=== PATIENT | male | born 1940 | race Caucasian/White ===

== ENCOUNTER 2017-04-02 07:48 | Inpatient (IN) | payer MEDICARE ==
[~2017-04-02] VITALS: Ht 175.3 cm; Wt 89.0 kg
[~2017-04-02 07:48] MED LIST: BENI20TA25 PO; CORE25TA PO; COUM2TAB PO; COUM4TAB7 PO; ROSU10 PO; VITA400C58 PO
[2017-04-02 07:50] VITALS: BP 126/98; PULSE 69; RESP 15; TEMP 98.2; O2SAT 97
[2017-04-02] MEDS ORDERED: SODIUM CHLOR 0.9% 1000 ML INJ 1,000 ML IV SCH ×2 (08:17→11:30)
[2017-04-02 08:22] VITALS: RESP 18; O2SAT 98
[2017-04-02] MEDS ORDERED: DIATRIZOATE MEGLUM/DIATRIZOATE SOD 9 ML CUP ONE ×2 (08:28→08:30)
[2017-04-02] MEDS ORDERED: ONDANSETRON HCL 4 MG/2 ML VIAL IVP ONE (08:30)
--- NOTE | 2017-04-02 08:33 | PD ---
HPI Chief Complaint: Abdominal Pain Time Seen by Provider: 07:55 Travel History International Travel<30 days: No Contact w/Intl Traveler<30days: No Traveled to known affect area: No History of Present Illness HPI This is a 76 year old gentleman with a history of diverticulitis, thrombocythemia, presents today with complaints of abdominal pain and nausea. The patient states that he was experiencing left lower quadrant abdominal pain consistent with his previous diverticulitis episodes. He states his GI doctor, Dr. Lopez, prescribed ciprofloxacin and wanted him to have a CT scan on Monday which is tomorrow. The patient states over the evening he started experiencing slightly worse abdominal pain. He also states he is nauseous. He states his mouth was really dry and throughout the night he had drink water to keep his tongue from being so dried out. He states that early in the morning he noted some dried blood on the back of his tongue. He denies any melena. He denies any hematemesis. He does take Xarelto. There is no reported fevers, chills. There are no other complaints time my examination. PFSH Past Medical History Hx Anticoagulant Therapy: Yes (xarelto) Arthritis: No Atrial Fibrillation: Yes Blood Disorders: No Heart Rhythm Problems: No Cancer: Yes (BASAL CELL REMOVED FROM NOSE) Cardiovascular Problems: Yes (afib with ablation in 2014) High Cholesterol: Yes Chemotherapy: No Chest Pain: No Congestive Heart Failure: No Diminished Hearing: No Diverticulitis: Yes Endocrine: No Gastrointestinal Disorders: Yes GERD: Yes Genitourinary: Yes Hepatitis: No Hiatal Hernia: No Heparin Induced Thrombocytopen: No Hypertension: Yes Immune Disorder: No Inguinal Hernia: Yes Implanted Vascular Access Dvce: No Kidney Stones: No Musculoskeletal: Yes Neurologic: No Psychiatric: No Respiratory: No Myocardial Infarction: No Radiation Therapy: No Renal Failure: No Sickle Cell Disease: No Ulcer: No Past Surgical History Abdominal Surgery: Yes (GALL BLADDER SX) AICD: No Appendectomy: No Arteriovenous Shunt: No Body Medical Devices: LEFT ANKLE PIN Cardiac Surgery: No Cholecystectomy: Yes Ear Surgery: No Endocrine Surgery: No Eye Surgery: No Genitourinary Surgery: Yes (INGUINAL REPAIR) Insulin Pump: No Joint Replacement: No Neurologic Surgery: Yes (REPAIR OF HERNIATED DISC) Oral Surgery: Yes Pacemaker: No Thoracic Surgery: No Tonsillectomy: Yes Other Surgery: No (REMOVAL OF BASAL CELL CA ON NOSE) Social History 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) Tobacco Use: No Substance Use: No Allergies-Medications (Allergen,Severity, Reaction): Coded Allergies: Sulfa (Sulfonamide Antibiotics) (Unverified Allergy, Severe, HIVES, ) bee venom protein (honey bee) (Unverified Allergy, Mild, SWELLING AT SITE , 02/28/17) Reported Meds & Prescriptions Reported Meds & Active Scripts Active Reported Foltabs (Folic Acid-B12-B6) 0.8-115-10 Mg Tab 1 Tab PO DAILY Xarelto (Rivaroxaban) 20 Mg Tab 20 Mg PO DAILY Benicar (Olmesartan) 20 Mg Tab 20 Mg PO DAILY Crestor (Rosuvastatin Calcium) 10 Mg Tab 10 Mg PO DAILY Coreg (Carvedilol) 25 Mg Tab 25 Mg PO BID Review of Systems Except as stated in HPI: all other systems reviewed are Neg General / Constitutional: No: Fever, Chills HENT: No: Headaches, Lightheadedness, Neck Pain Cardiovascular: No: Chest Pain or Discomfort, Palpitations Respiratory: No: Cough, Shortness of Breath Gastrointestinal: Positive: Nausea, Abdominal Pain (F lower quadrant), Other ( no melena), No: Vomiting, Diarrhea, Hematemesis Genitourinary: No: Frequency, Dysuria Musculoskeletal: No: Weakness, Pain Neurologic: No: Weakness, Headache Physical Exam Narrative GENERAL: Well-developed well-nourished male in no acute rest her distress. SKIN: Focused skin assessment warm/dry. HEAD: Atraumatic. Normocephalic. EYES: No scleral icterus. No injection or drainage. ENT: No nasal bleeding or discharge. Mucous membranes pink and moist. On examination patient's oropharynx, there is no gum or tongue bleeding at the time of my evaluation. NECK: Trachea midline. Supple. CARDIOVASCULAR: Regular rate and rhythm. No murmur appreciated. RESPIRATORY: No accessory muscle use. Clear to auscultation. Breath sounds equal bilaterally. GASTROINTESTINAL: Abdomen soft, nondistended. There is slight redness to palpation in left lower quadrant. No rebound or guarding. MUSCULOSKELETAL: No obvious deformities. No clubbing. No cyanosis. No edema. NEUROLOGICAL: Awake and alert. No obvious cranial nerve deficits. Motor grossly within normal limits. Normal speech. PSYCHIATRIC: Appropriate mood and affect; insight and judgment normal. Data Data Last Documented VS Vital Signs Date Time Temp Pulse Resp B/P (MAP) Pulse Ox O2 Delivery O2 Flow Rate FiO2 04/02/17 12:02 66 18 121/76 (91) 95 Room Air 04/02/17 07:50 98.2 Orders Orders Complete Blood Count With Diff (04/02/17 08:17) Comprehensive Metabolic Panel (04/02/17 08:17) Lipase (04/02/17 08:17) Prothrombin Time / Inr (Pt) (04/02/17 08:17) Act Partial Throm Time (Ptt) (04/02/17 08:17) Urinalysis - C+S If Indicated (04/02/17 08:17) Iv Access Insert/Monitor (04/02/17 08:17) Ecg Monitoring (04/02/17 08:17) Oximetry (04/02/17 08:17) Ondansetron Inj (Zofran Inj) (04/02/17 08:30) Sodium Chlor 0.9% 1000 Ml Inj (Ns 1000 M (04/02/17 08:17) Diatrizoate Liq ( Gastronatalie Liq) (04/02/17 08:28) Diatrizoate Liq (Md Alan Liq) (04/02/17 08:30) Oral Contrast - Adult (04/02/17 09:49) Ct Abd/Pel W/O Iv Contrast (04/02/17 09:46) Sodium Chlor 0.9% 1000 Ml Inj (Ns 1000 M (04/02/17 11:30) Bladder Scan PRN (04/02/17 11:28) Ciprofloxacin (Cipro) (04/02/17 12:15) Consult Nephrology (04/02/17 ) Admit Order (Ed Use Only) (04/02/17 12:14) Labs Laboratory Tests Test 04/02/17 08:37 White Blood Count 3.8 TH/MM3 Red Blood Count 4.79 MIL/MM3 Hemoglobin 14.3 GM/DL Hematocrit 41.5 % Mean Corpuscular Volume 86.8 FL Mean Corpuscular Hemoglobin 29.8 PG Mean Corpuscular Hemoglobin Concent 34.4 % Red Cell Distribution Width 13.1 % Platelet Count 106 TH/MM3 Mean Platelet Volume 7.4 FL Neutrophils (%) (Auto) 29.1 % Lymphocytes (%) (Auto) 52.1 % Monocytes (%) (Auto) 18.3 % Eosinophils (%) (Auto) 0.4 % Basophils (%) (Auto) 0.1 % Neutrophils # (Auto) 1.1 TH/MM3 Lymphocytes # (Auto) 2.0 TH/MM3 Monocytes # (Auto) 0.7 TH/MM3 Eosinophils # (Auto) 0.0 TH/MM3 Basophils # (Auto) 0.0 TH/MM3 CBC Comment AUTO DIFF Differential Total Cells Counted 100 Neutrophils % (Manual) 36 % Band Neutrophils % 8 % Lymphocytes % 42 % Monocytes % 14 % Neutrophils # (Manual) 1.7 TH/MM3 Differential Comment FINAL DIFF MANUAL Atypical Lymphocytes % Platelet Estimate LOW Platelet Morphology Comment NORMAL Red Cell Morphology Comment NORMAL Prothrombin Time 14.4 SEC Prothromb Time International Ratio 1.3 RATIO Activated Partial Thromboplast Time 36.7 SEC Urine Color YELLOW Urine Turbidity CLEAR Urine pH 5.0 Urine Specific [place] 1.008 Urine Protein NEG mg/dL Urine Glucose (UA) NEG mg/dL Urine Ketones NEG mg/dL Urine Occult Blood NEG Urine Nitrite NEG Urine Bilirubin NEG Urine Urobilinogen LESS THAN 2.0 MG/DL Urine Leukocyte Esterase NEG Urine RBC 1 /hpf Urine WBC 2 /hpf Microscopic Urinalysis Comment CULT NOT INDICATED Blood Urea Nitrogen 38 MG/DL Creatinine 2.97 MG/DL Random Glucose 110 MG/DL Total Protein 7.5 GM/DL Albumin 3.7 GM/DL Calcium Level 9.4 MG/DL Alkaline Phosphatase 92 U/L Aspartate Amino Transf (AST/SGOT) 45 U/L Alanine Aminotransferase (ALT/SGPT) 50 U/L Total Bilirubin 1.5 MG/DL Sodium Level 136 MEQ/L Potassium Level 4.4 MEQ/L Chloride Level 106 MEQ/L Carbon Dioxide Level 21.3 MEQ/L Anion Gap 9 MEQ/L Estimat Glomerular Filtration Rate 21 ML/MIN Lipase 139 U/L MDM Medical Decision Making Medical Screen Exam Complete: Yes Emergency Medical Condition: Yes Differential Diagnosis Diverticulitis versus diverticular abscess versus thrombocytopenia Narrative Course This is a 76 year-old gentleman who presents here with complaints of nausea and abdominal pain. Patient also reported blood in his mouth this morning. The patient is currently taking Xarelto. Patient has a history of diverticulitis and is being seen by Dr. Lopez, leg assembler. Patient's creatinine is 2.97. The last creatinine we have on record is normal at 1.0. Given this, we will hydrate him. His BUN is also elevated which indicates somewhat of a prerenal azotemia. Patient's CT scan shows evidence of diverticulosis without abscess. His bladder was distended. We're currently obtaining a bladder scan will do a post void residual. This appears to be residual urine in his bladder , we'll place a catheter. [facility] Case was discussed with Dr. Melchor. Post void residual showed 311 mL of urine that was retained after void. A [place] catheter has been placed. There's been a consult placed for Dr. Blackmon, rn private duty on-call. Diagnosis Primary Impression: Acute kidney injury Additional Impressions: Diverticulitis HX: anticoagulation oropharynx bleeding resolved. History of thrombocytopenia History of atrial fibrillation Admitting Information Admitting Physician Requests: Admit Hubert Mclaughlin MD Apr 02, 2017 08:33
[2017-04-02 09:00] LABS: AUTOMATED NEUTROPHIL # 1.1 TH/MM3 (1.8-7.7); BASOPHIL % 0.1 % (0.0-2.0); EOSINOPHIL % 0.4 % (0.0-4.0); HEMATOCRIT 41.5 % (39.0-51.0); LYMPH % 52.1 % (9.0-44.0); MEAN CELL VOLUME 86.8 FL (80.0-100.0); MEAN CORPUSCULAR HEMOGLOBIN 29.8 PG (27.0-34.0); MEAN CORPUSCULAR HGB CONC 34.4 % (32.0-36.0); MONO % 18.3 % (0.0-8.0); NEUT % 29.1 % (16.0-70.0); PLATELET COUNT 106 TH/MM3 (150-450); RED BLOOD COUNT 4.79 MIL/MM3 (4.50-5.90); RED CELL DISTRIBUTION WIDTH 13.1 % (11.6-17.2); WHITE BLOOD COUNT 3.8 TH/MM3 (4.0-11.0)
[2017-04-02 09:04] LABS: HEMO FLAGS AUTO DIFF
[2017-04-02 09:06] LABS: ANION GAP 9 MEQ/L (5-15); AST (GOT) 45 U/L (15-37); BICARBONATE 21.3 MEQ/L (21.0-32.0); BLOOD UREA NITROGEN 38 MG/DL (7-18); CHLORIDE 106 MEQ/L (98-107); GLOMERULAR FILTRATION RATE 21 ML/MIN (>89); POTASSIUM 4.4 MEQ/L (3.5-5.1); SODIUM (NA) 136 MEQ/L (136-145)
[2017-04-02 09:07] LABS: ALT (GPT) 50 U/L (12-78)
[2017-04-02 09:09] LABS: APTT (PATIENT) 36.7 SEC (24.3-30.1); INTERNATIONAL NORMALIZED RATIO 1.3 RATIO; PROTHROMBIN TIME - PATIENT 14.4 SEC (9.8-11.6)
[2017-04-02 09:10] LABS: ALKALINE PHOSPHATASE 92 U/L (45-117); TOTAL BILIRUBIN ADULT 1.5 MG/DL (0.2-1.0)
[2017-04-02 09:25] LABS: BLOOD, URINE NEG (NEG); COMMENT (UR) CULT NOT INDICATED; CULTURE IF INDICATED CULT NOT INDICATED; GLUCOSE,URINE NEG (NEG); KETONE, URINE NEG (NEG); NITRITE,URINE NEG (NEG); URINE COLOR YELLOW (YELLW/STRAW)
[2017-04-02 09:40] LABS: BANDS 8 % (0-6); NEUTROPHIL # MANUAL DIFF 1.7 TH/MM3 (1.8-7.7); PLATELET ESTIMATE SMEAR LOW (NORMAL); PLATELET MORPHOLOGY NORMAL (NORMAL); POLYS (SEG NEUTROPHILS) 36 % (16-70); SCAN/DIFF FINAL DIFF MANUAL; WBC DIFF SAMPLE 100
--- NOTE | 2017-04-02 10:47 | RADRPT ---
EXAM DATE/TIME: 04/02/2017 10:19 [facility] COMPARISON: No previous studies available for comparison. INDICATIONS : Abdominal pain with nausea. ORAL CONTRAST: Prescribed oral contrast ingested. RADIATION DOSE: 14.13 CTDIvol (mGy) MEDICAL HISTORY : Diverticulitis. Cardiovascular disease SURGICAL HISTORY : Cholecystectomy. Hernia repair. ENCOUNTER: Initial ACUITY: 2 days PAIN SCALE: 7/10 LOCATION: Left lower quadrant abdominal. TECHNIQUE: Volumetric scanning of the abdomen and pelvis was performed. Using automated exposure control and ad justment of the mA and/or kV according to patient size, radiation dose was kept as low as reasonably achievable to obtain optimal diagnostic quality images. DICOM format image data is available electro nically for review and comparison. FINDINGS: LOWER LUNGS: The visualized lower lungs are clear. LIVER: Homogeneous density without lesion. There is no dilation of the biliary tree. The patient is status post cholecystectomy. SPLEEN: Normal size without lesion. PANCREAS: Within normal limits. KIDNEYS: Normal in size and shape. There is no mass, stone, or hydronephrosis. ADRENAL GLANDS: Within normal limits. VASCULAR: There is no aortic aneurysm. There scattered atherosclerotic calcifications present. BOWEL/MESENTERY: There is a mild hiatal hernia present. There are colonic diverticula without significant inflammatory change. ABDOMINAL WALL: Within normal limits. RETROPERITONEUM: There is no lymphadenopathy. BLADDER: The bladder is distended. REPRODUCTIVE: Within normal limits. INGUINAL: There is no lymphadenopathy or hernia. MUSCULOSKELETAL: There is degenerative change in lumbar spine. CONCLUSION: 1. Diverticula throughout the colon without definite inflammatory change. 2. Distended urinary bladder. Some degree of outlet structure can be considered. 3. Hiatal hernia. Alexys Sanches MD on April 02, 2017 at 10:41 Board Certified Radiologist. This report was verified electronically.
[2017-04-02] MEDS ORDERED: CORE25TA PO (10:53)
[2017-04-02] MEDS ORDERED: ROSU10 PO (10:53)
[2017-04-02] MEDS ORDERED: BENI20TA5 PO (10:53)
[2017-04-02] MEDS ORDERED: XARE20TA PO (10:53)
[2017-04-02] MEDS ORDERED: FOLI-31 PO (10:53)
[2017-04-02 12:02] VITALS: BP 121/76; PULSE 66; RESP 18; O2SAT 95
[2017-04-02 12:15] VITALS: BP 121/77; PULSE 65; RESP 18; O2SAT 98
[2017-04-02] MEDS ORDERED: CIPROFLOXACIN 500 MG TAB PO ONE (12:15)
[2017-04-02] MEDS: SODIUM CHLOR 0.9% 1000 ML INJ 1,000 ML IV SCH (12:27)
[2017-04-02] MEDS ORDERED: BISACODYL 10 MG SUPP RECTAL PRN (12:30)
[2017-04-02] MEDS ORDERED: ACETAMINOPHEN 325 MG TAB PO PRN (12:30)
[2017-04-02] MEDS ORDERED: SODIUM CHLORIDE 0.9% FLUSH 10 ML FLUSH IV FLUSH PRN (12:30)
[2017-04-02] MEDS ORDERED: MAGNESIUM HYDROXIDE SUSP 30 ML CUP PO PRN (12:30)
[2017-04-02] MEDS ORDERED: NALOXONE HCL 0.4 MG/ML AMP IV PUSH PRN (12:30)
[2017-04-02] MEDS ORDERED: ONDANSETRON HCL 4 MG/2 ML VIAL IVP PRN (12:30)
[2017-04-02] MEDS ORDERED: LACTULOSE SYRUP 20 GM/30 ML CUP PO PRN (12:30)
[2017-04-02] MEDS ORDERED: MORPHINE SULFATE 4 MG/ML INJ IV PUSH PRN (12:30)
[2017-04-02] MEDS ORDERED: SENNOSIDES 8.6 MG TAB PO PRN (12:30)
[2017-04-02] MEDS: LEVOFLOXACIN 250 MG PREMIX INJ 50 ML IV SCH (13:57)
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
[2017-04-02 16:00] VITALS: BP 151/69; PULSE 91; RESP 18; TEMP 96.7; O2SAT 97
--- NOTE | 2017-04-02 16:07 | PD.CONS ---
[facility] Service Nephrology Consult Requested By Reason for Consult Acute kidney injury Primary Care Physician Ryder Alcala M.D. History of Present Illness Mr. Gaston is a 76 year old male who developed abdominal pain last week. He was prescribed Cipro and was scheduled to have CT of the abdomen on Monday. He took 2 doses of of Cipro, however the abdominal pain progressively prompting him to come to the ER. In the ER he is noted to have a creatinine of 2.97. In 2012, his creatinine was 0.94. He had CT scan of the abdomen today which revealed diverticula, but with definitive signs of inflammation. Incidentally it revealed distended bladder. Bladder scan detected about 311 ml of urine. Randolph was placed. He has been placed on IVF and Levaquin. Review of Systems Constitutional: COMPLAINS OF: Fatigue, DENIES: Fever Eyes: DENIES: Blurred vision, Diplopia Cardiovascular: DENIES: Chest pain, Palpitations Gastrointestinal: COMPLAINS OF: Abdominal pain, Diarrhea, Nausea, DENIES: Black stools, Bloody stools Musculoskeletal: DENIES: Joint pain Neurologic: DENIES: Abnormal gait, Headache, Localized weakness Past Family Social History Allergies: Coded Allergies: Sulfa (Sulfonamide Antibiotics) (Unverified Allergy, Severe, HIVES, ) bee venom protein (honey bee) (Unverified Allergy, Mild, SWELLING AT SITE , 02/28/17) Past Medical History Diverticulosis Thrombocytopenia, follows up with Dr. Blackmon Skin cancer Atrial fibrillation on Xarelto Previous ablation GERD BPH Hyperlipidemia Hypertension Past Surgical History TURP [address] Andre Back surgery Laparoscopic cholecystectomy Left inguinal hernia repair Colonoscopy Reported Medications Reported Meds & Active Scripts Active Reported Foltabs (Folic Acid-B12-B6) 0.8-115-10 Mg Tab 1 Tab PO DAILY Xarelto (Rivaroxaban) 20 Mg Tab 20 Mg PO DAILY Benicar (Olmesartan) 20 Mg Tab 20 Mg PO DAILY Crestor (Rosuvastatin Calcium) 10 Mg Tab 10 Mg PO DAILY Coreg (Carvedilol) 25 Mg Tab 25 Mg PO BID Active Ordered Medications Current Medications Medications (Trade) Dose Ordered Sig/Zita Route Start Time Stop Time Status Last Admin Sodium Chloride 1,000 ml @ 125 mls/hr Q8H IV 04/02/17 08:17 04/02/17 16:16 04/02/17 08:56 Sodium Chloride 1,000 ml @ 100 mls/hr Q10H IV 04/02/17 12:27 (NS Flush) 2 ml UNSCH PRN IV FLUSH 04/02/17 12:30 (NS Flush) 2 ml BID IV FLUSH 04/02/17 21:00 (Tylenol) 650 mg Q4H PRN PO 04/02/17 12:30 (Zofran Inj) 4 mg Q6H PRN IVP 04/02/17 12:30 (Morphine Inj) 2 mg Q3H PRN IV PUSH 04/02/17 12:30 (Narcan Inj) 0.4 mg UNSCH PRN IV PUSH 04/02/17 12:30 (Jojo-Colace) 1 tab BID PO 04/02/17 21:00 (Milk Of Magnesia Liq) 30 ml Q12H PRN PO 04/02/17 12:30 (Senokot) 17.2 mg Q12H PRN PO 04/02/17 12:30 (Dulcolax Supp) 10 mg DAILY PRN RECTAL 04/02/17 12:30 (Lactulose Liq) 30 ml DAILY PRN PO 04/02/17 12:30 (Coreg) 25 mg BID PO 04/02/17 21:00 (Xarelto) 20 mg DAILY PO 04/03/17 09:00 Patient Own Medication PT OWN MED: FOLIC ACID-BQ2-... DAILY PO 04/03/17 09:00 Future Hold (Lipitor) 20 mg DAILY PO 04/03/17 09:00 Levofloxacin/ Dextrose 50 ml @ 50 mls/hr Q24H IV 04/02/17 14:00 04/02/17 13:57 (Flomax) 0.4 mg DAILY PO 04/02/17 16:00 Family History Father had CHF Mother of complications of CVA Social History no tobacco, no ETOH Physical Exam Vital Signs Vital Signs Date Time Temp Pulse Resp B/P (MAP) Pulse Ox O2 Delivery O2 Flow Rate FiO2 04/02/17 12:15 65 18 121/77 (92) 98 Room Air 04/02/17 12:02 66 18 121/76 (91) 95 Room Air 04/02/17 08:22 18 98 Room Air 04/02/17 08:00 18 04/02/17 07:50 98.2 69 15 126/98 (107) 97 Physical Exam GENERAL: alert, oriented, comfortable. SKIN: Warm and dry. HEAD: Normocephalic. EYES: No scleral icterus. No injection or drainage. NECK: Supple, trachea midline. No JVD or lymphadenopathy. CARDIOVASCULAR: Regular rate and rhythm without murmurs, gallops, or rubs. RESPIRATORY: Breath sounds equal bilaterally. No accessory muscle use. GASTROINTESTINAL: Abdomen soft, non-tender, nondistended. MUSCULOSKELETAL: No cyanosis, or edema. BACK: Nontender without obvious deformity. No CVA tenderness. Laboratory Laboratory Tests Test 04/02/17 08:37 White Blood Count 3.8 Red Blood Count 4.79 Hemoglobin 14.3 Hematocrit 41.5 Mean Corpuscular Volume 86.8 Mean Corpuscular Hemoglobin 29.8 Mean Corpuscular Hemoglobin Concent 34.4 Red Cell Distribution Width 13.1 Platelet Count 106 Mean Platelet Volume 7.4 Neutrophils (%) (Auto) 29.1 Lymphocytes (%) (Auto) 52.1 Monocytes (%) (Auto) 18.3 Eosinophils (%) (Auto) 0.4 Basophils (%) (Auto) 0.1 Neutrophils # (Auto) 1.1 Lymphocytes # (Auto) 2.0 Monocytes # (Auto) 0.7 Eosinophils # (Auto) 0.0 Basophils # (Auto) 0.0 CBC Comment AUTO DIFF Differential Total Cells Counted 100 Neutrophils % (Manual) 36 Band Neutrophils % 8 Lymphocytes % 42 Monocytes % 14 Neutrophils # (Manual) 1.7 Differential Comment FINAL DIFF MANUAL Atypical Lymphocytes Platelet Estimate LOW Platelet Morphology Comment NORMAL Red Cell Morphology Comment NORMAL Prothrombin Time 14.4 Prothromb Time International Ratio 1.3 Activated Partial Thromboplast Time 36.7 Urine Color YELLOW Urine Turbidity CLEAR Urine pH 5.0 Urine Specific [place] 1.008 Urine Protein NEG Urine Glucose (UA) NEG Urine Ketones NEG Urine Occult Blood NEG Urine Nitrite NEG Urine Bilirubin NEG Urine Urobilinogen LESS THAN 2.0 Urine Leukocyte Esterase NEG Urine RBC 1 Urine WBC 2 Microscopic Urinalysis Comment CULT NOT INDICATED Blood Urea Nitrogen 38 Creatinine 2.97 Random Glucose 110 Total Protein 7.5 Albumin 3.7 Calcium Level 9.4 Alkaline Phosphatase 92 Aspartate Amino Transf (AST/SGOT) 45 Alanine Aminotransferase (ALT/SGPT) 50 Total Bilirubin 1.5 Sodium Level 136 Potassium Level 4.4 Chloride Level 106 Carbon Dioxide Level 21.3 Anion Gap 9 Estimat Glomerular Filtration Rate 21 Lipase 139 Result Diagram: 04/02/1737 04/02/1737 Assessment and Plan Problem List: (1) Acute kidney injury ICD Codes: N17.9 - Acute kidney failure, unspecified Status: Acute Plan: Could be due to pre-renal azotemia due to intravascular volume depletion. Urinary retention may have played a role, he has made about 800 ml of urine since insertion of Randolph catheter. However bladder scan revealed only about 300 ml of urine. Agree with IVF. Reduce the rate. Obtain urine electrolytes. Avoid nephrotoxic agents. Monitor urine output and renal function. (2) Essential (primary) hypertension ICD Codes: I10 - Essential (primary) hypertension Status: Chronic Plan: Suspend Benicar for the time being, monitor. (3) History of atrial fibrillation ICD Codes: Z86.79 - Personal history of other diseases of the circulatory system Status: Chronic Plan: Xarelto may need to be suspended due to MICHAELLE. (4) History of thrombocytopenia ICD Codes: Z86.2 - Personal history of diseases of the blood and blood-forming organs and certain disorders involving the immune mechanism Status: Acute Plan: chronic, appears stable. Monitor. Assessment and Plan Thanks for the consult. Дмитрий Price MD Apr 02, 2017 16:07
[2017-04-02] MEDS: TAMSULOSIN HCL 0.4 MG CAP PO SCH (17:55)
[2017-04-02] MEDS ORDERED: RIVAROXABAN 20 MG TAB PO SCH (18:00)
[2017-04-02 20:00] VITALS: BP 129/62; PULSE 68; RESP 20; TEMP 98.3; O2SAT 96
[2017-04-02] MEDS: DOCUSATE SODIUM 50 MG/SENNA 8.6 MG TAB PO SCH (21:00)
[2017-04-02] MEDS: SODIUM CHLORIDE 0.9% FLUSH 10 ML FLUSH IV FLUSH SCH (21:00)
[2017-04-02] MEDS: CARVEDILOL 12.5 MG TAB PO SCH (21:06)
[2017-04-03] VITALS: BP 106/55; PULSE 74; RESP 20; TEMP 98.9; O2SAT 95
[2017-04-03] MEDS: SODIUM CHLOR 0.9% 1000 ML INJ 1,000 ML IV SCH ×3 (00:01→20:58)
[2017-04-03 07:21] LABS: HEMATOCRIT 36.1 % (39.0-51.0); MEAN CELL VOLUME 87.1 FL (80.0-100.0); MEAN CORPUSCULAR HEMOGLOBIN 29.9 PG (27.0-34.0); MEAN CORPUSCULAR HGB CONC 34.3 % (32.0-36.0); PLATELET COUNT 94 TH/MM3 (150-450); RED BLOOD COUNT 4.14 MIL/MM3 (4.50-5.90); WHITE BLOOD COUNT 3.4 TH/MM3 (4.0-11.0)
[2017-04-03 07:35] LABS: REVIEW FLAG FINAL
[2017-04-03] MEDS: SODIUM CHLORIDE 0.9% FLUSH 10 ML FLUSH IV FLUSH SCH ×2 (07:38→20:57)
[2017-04-03] MEDS: CARVEDILOL 12.5 MG TAB PO SCH ×2 (07:38→20:57)
[2017-04-03] MEDS: ATORVASTATIN 20 MG TAB PO SCH (07:38)
[2017-04-03] MEDS: TAMSULOSIN HCL 0.4 MG CAP PO SCH (07:38)
[2017-04-03] MEDS: DOCUSATE SODIUM 50 MG/SENNA 8.6 MG TAB PO SCH ×2 (07:39→20:57)
[2017-04-03 07:55] LABS: BICARBONATE 20.3 MEQ/L (21.0-32.0); POTASSIUM 4.3 MEQ/L (3.5-5.1)
[2017-04-03 08:00] VITALS: BP 120/59; PULSE 75; RESP 18; TEMP 96.9; O2SAT 95
[2017-04-03] MEDS ORDERED: FOLIC ACID PO SCH (09:00)
[2017-04-03] MEDS ORDERED: CYANOCOBALAMIN PO SCH (09:00)
[2017-04-03] MEDS ORDERED: PYRIDOXINE PO SCH (09:00)
--- NOTE | 2017-04-03 09:35 | HHI.PR ---
Subjective Subjective Remarks resting in bed in pt. feeling better, no abd. pain, tolerating clear liquids ketaing intact, clear urine, hoping for dc soon, today? Review of Systems Constitutional Constitutional Remarks 10 point ROS done. GI/Abdomen GI/Abdomen Remarks tolerating clear liquids Psychiatric Psychiatric: Normal Mood Vitals/Results Intake & Output 04/03/17 04/03/17 04/04/17 15:00 23:00 07:00 Intake Total 120 ml Balance 120 ml Intake Oral 120 ml Vital Signs Vital Signs Date Time Temp Pulse Resp B/P (MAP) Pulse Ox O2 Delivery O2 Flow Rate FiO2 04/03/17 08:00 96.9 75 18 120/59 (79) 95 04/03/17 00:00 98.9 74 20 106/55 (72) 95 04/02/17 20:00 98.3 68 20 129/62 (84) 96 04/02/17 16:00 96.7 91 18 151/69 (96) 97 04/02/17 12:15 65 18 121/77 (92) 98 Room Air 04/02/17 12:02 66 18 121/76 (91) 95 Room Air CBC/BMP: 04/03/17 0620 04/03/17 0620 Lab Results Laboratory Tests Test 04/03/17 06:20 White Blood Count 3.4 TH/MM3 Red Blood Count 4.14 MIL/MM3 Hemoglobin 12.4 GM/DL Hematocrit 36.1 % Mean Corpuscular Volume 87.1 FL Mean Corpuscular Hemoglobin 29.9 PG Mean Corpuscular Hemoglobin Concent 34.3 % Red Cell Distribution Width 13.0 % Platelet Count 94 TH/MM3 Mean Platelet Volume 7.7 FL Blood Urea Nitrogen 35 MG/DL Creatinine 2.66 MG/DL Random Glucose 89 MG/DL Calcium Level 8.1 MG/DL Sodium Level 138 MEQ/L Potassium Level 4.3 MEQ/L Chloride Level 108 MEQ/L Carbon Dioxide Level 20.3 MEQ/L Anion Gap 10 MEQ/L Estimat Glomerular Filtration Rate 23 ML/MIN Current Medications Administered Medications Medications (Trade) Dose Ordered Sig/Zita Route PRN Reason Start Time Stop Time Status Last Admin Dose Admin Carvedilol (Coreg) 25 mg BID PO 04/02/17 21:00 04/03/17 07:38 Rivaroxaban (Xarelto) 20 mg DAILY@1800 PO 04/02/17 18:00 04/02/17 17:55 Atorvastatin Calcium (Lipitor) 20 mg DAILY PO 04/03/17 09:00 04/03/17 07:38 Levofloxacin/ Dextrose 50 ml @ 50 mls/hr Q24H IV 04/02/17 14:00 04/02/17 13:57 Tamsulosin HCl (Flomax) 0.4 mg DAILY PO 04/02/17 16:00 04/03/17 07:38 Physical Exam General General Appearance: Comfortable Eyes Eye Exam: Pupils Equal, Pupils Reactive Ears & Nose Ears & Nose Exam: Nasal Mucosa [place] Throat Throat Exam: Oral Mucosa [place] & Moist Neck Neck Exam: Neck Supple Pulmonary Resp Exam: Clear Bilaterally Cardiology CV Exam: Regular Gastrointestinal/Abdomen GI Exam: Soft, Non-Tender, Bowel Sounds Present GI Remarks clear liquids , No nausea /vomiting Musculoskeletal MS Exam: Joints Intact, Good Strength Integumentary Skin Exam: Warm, Dry, Intact Extremeties Extremities Exam: No Edema Neurologic Neuro Exam: Alert, Awake, Oriented, Speech Clear, Moving All Extremities Assessment/Plan Assessment/Plan Vital signs reviewed trends are normal, afebrile Labs reviewed, leukopenia 3.4, anemia which appears to be stable and could be related to his renal disease Acute diverticulitis, hydration IVF tolerating clear liquid diet, active BS, no pain Levaquin 250 mg IV daily Acute kidney injury, possibly pre-renal azotemia due to intravascular volume depletion Appreciate nephrology input, recommendations include , IVF. Reduce the rate. Monitor I&O, avoid nephrotoxic agents Hold Benicar, Xarelto could be causing acute kidney injury, Continue [place] catheter for now, Flomax initiated labs reviewed, only mild changes noted. A. fib on Xarelto Prior ablation, Xarelto, DVT prophylaxis Hypertension, medical management Stable trends Thrombocytopenia Platelets 106, probable chronic Discussed with patient Discussed with Dr. Machcua, seen on his behalf DC planning when medically stable to follow as OP Adela Romero Apr 03, 2017 09:35
[2017-04-03 12:00] VITALS: BP 103/58; PULSE 63; RESP 19; TEMP 98.3; O2SAT 96
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
[2017-04-03] MEDS: LEVOFLOXACIN 250 MG PREMIX INJ 50 ML IV SCH (12:30)
[2017-04-03 16:00] VITALS: BP 104/55; PULSE 62; RESP 18; TEMP 97.5; O2SAT 99
[2017-04-03 20:00] VITALS: BP 137/73; PULSE 67; RESP 18; TEMP 97.7; O2SAT 95
[2017-04-04] VITALS: BP 114/55; PULSE 71; RESP 18; TEMP 98.6; O2SAT 95
[2017-04-04 07:50] LABS: AUTOMATED NEUTROPHIL # 0.8 TH/MM3 (1.8-7.7); BASOPHIL % 0.2 % (0.0-2.0); EOSINOPHIL % 0.9 % (0.0-4.0); HEMATOCRIT 37.4 % (39.0-51.0); LYMPH % 55.5 % (9.0-44.0); LYMPHOCYTE # 1.7 TH/MM3 (1.0-4.8); MEAN CELL VOLUME 87.1 FL (80.0-100.0); MEAN CORPUSCULAR HEMOGLOBIN 29.5 PG (27.0-34.0); MEAN CORPUSCULAR HGB CONC 33.9 % (32.0-36.0); MONO % 19.2 % (0.0-8.0); NEUT % 24.2 % (16.0-70.0); PLATELET COUNT 108 TH/MM3 (150-450); RED BLOOD COUNT 4.29 MIL/MM3 (4.50-5.90); RED CELL DISTRIBUTION WIDTH 12.7 % (11.6-17.2); WHITE BLOOD COUNT 3.1 TH/MM3 (4.0-11.0)
[2017-04-04 07:54] LABS: HEMO FLAGS AUTO DIFF
[2017-04-04 08:00] VITALS: BP 134/62; PULSE 65; RESP 16; TEMP 96.5; O2SAT 96
[2017-04-04] MEDS: SODIUM CHLORIDE 0.9% FLUSH 10 ML FLUSH IV FLUSH SCH (08:22)
[2017-04-04 08:23] LABS: BICARBONATE 20.1 MEQ/L (21.0-32.0); POTASSIUM 3.9 MEQ/L (3.5-5.1)
[2017-04-04] MEDS: TAMSULOSIN HCL 0.4 MG CAP PO SCH (08:23)
[2017-04-04] MEDS: CARVEDILOL 12.5 MG TAB PO SCH (08:23)
[2017-04-04] MEDS: ATORVASTATIN 20 MG TAB PO SCH (08:23)
[2017-04-04] MEDS: DOCUSATE SODIUM 50 MG/SENNA 8.6 MG TAB PO SCH (08:25)
[2017-04-04] MEDS ORDERED: APIXABAN 2.5 MG TABLET PO SCH (09:00)
[2017-04-04 09:01] LABS: BANDS 4 % (0-6); BASOPHILS 1 % (0-2); NEUTROPHIL # MANUAL DIFF 0.7 TH/MM3 (1.8-7.7); OVALOCYTES 1+ (NORMAL); PLATELET ESTIMATE SMEAR LOW (NORMAL); PLATELET MORPHOLOGY NORMAL (NORMAL); POLYS (SEG NEUTROPHILS) 18 % (16-70); SCAN/DIFF FINAL DIFF MANUAL; WBC DIFF SAMPLE 100
--- NOTE | 2017-04-04 09:57 | HHI.PR ---
Subjective Subjective Remarks Up in chair Awake alert feeling better Randolph catheter DC'd yesterday Eating regular food without nausea or vomiting Bowel sounds are active Review of Systems Constitutional Constitutional Remarks 10 point ROS done. GI/Abdomen GI/Abdomen Remarks Transition to heart healthy diet, no nausea and vomiting Psychiatric Psychiatric: Normal Mood Vitals/Results Vital Signs Vital Signs Date Time Temp Pulse Resp B/P (MAP) Pulse Ox O2 Delivery O2 Flow Rate FiO2 04/04/17 08:00 96.5 65 16 134/62 (86) 96 04/04/17 00:00 98.6 71 18 114/55 (74) 95 04/03/17 20:00 97.7 67 18 137/73 (94) 95 04/03/17 16:00 97.5 62 18 104/55 (71) 99 04/03/17 12:00 98.3 63 19 103/58 (73) 96 CBC/BMP: 04/04/17 0557 04/04/17 0557 Lab Results Laboratory Tests Test 04/04/17 05:57 White Blood Count 3.1 TH/MM3 Red Blood Count 4.29 MIL/MM3 Hemoglobin 12.6 GM/DL Hematocrit 37.4 % Mean Corpuscular Volume 87.1 FL Mean Corpuscular Hemoglobin 29.5 PG Mean Corpuscular Hemoglobin Concent 33.9 % Red Cell Distribution Width 12.7 % Platelet Count 108 TH/MM3 Mean Platelet Volume 7.5 FL Neutrophils (%) (Auto) 24.2 % Lymphocytes (%) (Auto) 55.5 % Monocytes (%) (Auto) 19.2 % Eosinophils (%) (Auto) 0.9 % Basophils (%) (Auto) 0.2 % Neutrophils # (Auto) 0.8 TH/MM3 Lymphocytes # (Auto) 1.7 TH/MM3 Monocytes # (Auto) 0.6 TH/MM3 Eosinophils # (Auto) 0.0 TH/MM3 Basophils # (Auto) 0.0 TH/MM3 CBC Comment AUTO DIFF Differential Total Cells Counted 100 Neutrophils % (Manual) 18 % Band Neutrophils % 4 % Lymphocytes % 57 % Monocytes % 20 % Basophils % 1 % Neutrophils # (Manual) 0.7 TH/MM3 Differential Comment FINAL DIFF MANUAL Platelet Estimate LOW Platelet Morphology Comment NORMAL Ovalocytes 1+ Blood Urea Nitrogen 33 MG/DL Creatinine 2.48 MG/DL Random Glucose 85 MG/DL Calcium Level 8.3 MG/DL Sodium Level 139 MEQ/L Potassium Level 3.9 MEQ/L Chloride Level 109 MEQ/L Carbon Dioxide Level 20.1 MEQ/L Anion Gap 10 MEQ/L Estimat Glomerular Filtration Rate 25 ML/MIN Current Medications Administered Medications Medications (Trade) Dose Ordered Sig/Zita Route PRN Reason Start Time Stop Time Status Last Admin Dose Admin Sodium Chloride (NS Flush) 2 ml BID IV FLUSH 04/02/17 21:00 04/04/17 08:22 Senna/Docusate Sodium (Jojo-Colace) 1 tab BID PO 04/02/17 21:00 04/03/17 20:57 Carvedilol (Coreg) 25 mg BID PO 04/02/17 21:00 04/04/17 08:23 Atorvastatin Calcium (Lipitor) 20 mg DAILY PO 04/03/17 09:00 04/04/17 08:23 Levofloxacin/ Dextrose 50 ml @ 50 mls/hr Q24H IV 04/02/17 14:00 04/03/17 12:30 Tamsulosin HCl (Flomax) 0.4 mg DAILY PO 04/02/17 16:00 04/04/17 08:23 Apixaban (Eliquis) 2.5 mg BID PO 04/04/17 09:00 04/04/17 08:23 Physical Exam General General Appearance: Comfortable Eyes Eye Exam: Pupils Equal, Pupils Reactive Ears & Nose Ears & Nose Exam: Nasal Mucosa [place] Throat Throat Exam: Oral Mucosa [place] & Moist Neck Neck Exam: Neck Supple Pulmonary Resp Exam: Clear Bilaterally Cardiology CV Exam: Regular Gastrointestinal/Abdomen GI Exam: Soft, Non-Tender, Bowel Sounds Present GI Remarks Eating heart healthy diet , No nausea /vomiting Genitourinary Remarks Voiding without any difficulty, no dysuria, [place] catheter out for approximately 20 hours Musculoskeletal MS Exam: Joints Intact, Good Strength Integumentary Skin Exam: Warm, Dry, Intact Extremeties Extremities Exam: No Edema Neurologic Neuro Exam: Alert, Awake, Oriented, Speech Clear, Moving All Extremities Assessment/Plan Assessment/Plan Vital signs reviewed trends are normal, afebrile Labs reviewed, leukopenia monitored 3.1, BUN/creatinine gradual slow decreased trends Anemia, no obvious bleeding noted Acute diverticulitis, taking by mouth fluids well, encouraged Patient tolerating solid food, heart healthy diet Levaquin 250 mg IV daily Acute kidney injury, possibly pre-renal azotemia due to intravascular volume depletion Appreciate nephrology input, recommendations include , IV fluids off for now encourage by mouth liquids Monitor I&O, avoid nephrotoxic agents Hold Benicar, Xarelto discontinued and started on Eliquis , explained to patient Randolph catheter DC'd on 04-03 , Flomax daily dose, no problems with urinary retention A. fib , now on Eliquis Prior ablation, DVT prophylaxis Hypertension, medical management Stable trends Thrombocytopenia Platelets 106, probable chronic Discussed with patient Discussed with Dr. Machuca, seen on his behalf DC planning when medically stable, possible tomorrow if labs continue to improve , appreciate renal input Adela Romero Apr 04, 2017 09:57
[2017-04-04 12:00] VITALS: BP 109/62; PULSE 65; RESP 16; TEMP 97.5; O2SAT 97
[2017-04-04] MEDS: LEVOFLOXACIN 250 MG PREMIX INJ 50 ML IV SCH (13:25)
[2017-04-04] MEDS: SODIUM CHLOR 0.9% 1000 ML INJ 1,000 ML IV SCH (16:01)
[2017-04-04] MEDS ORDERED: APIX2.5T PO (16:25)
[2017-04-04] MEDS ORDERED: CIPR500T2 PO (16:25)
[2017-04-04] MEDS ORDERED: METR250T15 PO (16:26)
--- NOTE | 2017-04-04 16:39 | HHI.NPPN ---
Subjective Interval History Randolph was removed yesterday. He is voiding without issues. IVF stopped, he is tolerating oral intake. Renal function has improved. Review of Systems General Constitutional: Fatigue Objective Data Data Vital Signs Date Time Temp Pulse Resp B/P (MAP) Pulse Ox O2 Delivery O2 Flow Rate FiO2 04/04/17 12:00 97.5 65 16 109/62 (78) 97 04/04/17 08:00 96.5 65 16 134/62 (86) 96 04/04/17 00:00 98.6 71 18 114/55 (74) 95 04/03/17 20:00 97.7 67 18 137/73 (94) 95 -: 04/04/17 0557 04/04/17 0557 Physical Exam General Appearance: Comfortable Eyes Eye Exam: Pupils Equal, Pupils Reactive Ears & Nose Ears & Nose Exam: Nasal Mucosa [place] Throat Throat Exam: Oral Mucosa [place] & Moist Neck Neck Exam: Neck Supple Pulmonary Resp Exam: Clear Bilaterally Cardiology CV Exam: Regular Gastrointestinal/Abdomen GI Exam: Soft, Non-Tender, Bowel Sounds Present Musculoskeletal MS Exam: Joints Intact, Good Strength Integumentary Skin Exam: Warm, Dry, Intact Extremeties Extremities Exam: No Edema Neurologic Neuro Exam: Alert, Awake, Oriented, Speech Clear, Moving All Extremities Assessment/Plan Problem List: (1) Acute kidney injury ICD Codes: N17.9 - Acute kidney failure, unspecified Status: Acute Plan: Could be due to pre-renal azotemia due to intravascular volume depletion. Urinary retention may have played a role, he has made about 800 ml of urine since insertion of [place] catheter. However bladder scan revealed only about 300 ml of urine. Renal function has improved. Avoid nephrotoxins. He can be discharged from renal standpoint. I will be happy to follow him in our CKD clinic. (2) Essential (primary) hypertension ICD Codes: I10 - Essential (primary) hypertension Status: Chronic Plan: Suspend Benicar for the time being, monitor. (3) History of atrial fibrillation ICD Codes: Z86.79 - Personal history of other diseases of the circulatory system Status: Chronic Plan: on Apixaban. (4) History of thrombocytopenia ICD Codes: Z86.2 - Personal history of diseases of the blood and blood-forming organs and certain disorders involving the immune mechanism Status: Acute Plan: chronic, appears stable. Monitor. Дмитрий Price MD Apr 04, 2017 16:39
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
== END 2017-04-04 16:54 | disposition home or self-care (01) | DRG 392 ==
LOC: NEPE 07:48 → NEDA 12:17 → N07B 14:45
PROVIDERS: ADMIT Specialist; ATTEND Specialist
DX: K57.32 Diverticulitis of large intestine without perforation or abscess without bleeding (principal); N17.9 Acute kidney failure, unspecified; I48.91 Unspecified atrial fibrillation; E86.0 Dehydration; D64.9 Anemia, unspecified; D47.3 Essential (hemorrhagic) thrombocythemia; I10 Essential (primary) hypertension; E78.5 Hyperlipidemia, unspecified; K21.9 Gastro-esophageal reflux disease without esophagitis; K44.9 Diaphragmatic hernia without obstruction or gangrene; K59.00 Constipation, unspecified; Z79.01 Long term (current) use of anticoagulants; N40.1 Benign prostatic hyperplasia with lower urinary tract symptoms; R33.8 Other retention of urine
CPT/HCPCS: 51798; 74176; 80048; 80053; 81001; 83690; 85007; 85027; 85610; 85730; 96361; 96374; J1956; J2405; J7030; Q9963